=== PATIENT | male | born 1975 | race Caucasian/White ===

== ENCOUNTER 2017-10-18 10:37 | Emergency (ER) | payer SELFPAY ==
[2017-10-18 10:55] VITALS: BMI 26.6
--- NOTE | 2017-10-18 11:08 | PDOC ---
History of Present Illness - General History Source: Patient Exam Limitations: No Limitations - History of Present Illness Initial Comments: 10/18/17 12:01 The patient is a 42 year old male with a significant PMH of HTN who presents to the emergency department with headache, neck pain, vision disturbance, leg swelling, and nocturia for the past few weeks that worsened over the last 4 days. The patient complains of swelling over the eyes every morning. The patient states he has not been taking his HTN meds for the past 6 months due to financial reasons. He states he went to a doctor yesterday who prescribed him amlodipine and enalapril. The patient describes the headache as an 8/10. He notes he has had headaches in the past but not as severe as the most recent headaches. The patient also notes that he has been urinating up to 4-6 times at night. The patient denies chest pain, shortness of breath, and dizziness. Denies fever, chills, nausea, vomit, diarrhea and constipation. Denies urgency and hematuria. Allergies: NKA Past surgical history: None reported Social history: No reported alcohol, drug, or cigarette use. <Rosario Reed - Last Filed: 10/18/17 13:44> <Joshua Trinidad - Last Filed: 10/18/17 14:24> - General Chief Complaint: Head/Neck problem Stated Complaint: PAIN Time Seen by Provider: 10/18/17 11:03 Past History <Rosario Reed - Last Filed: 10/18/17 13:44> - Past Medical History COPD: No Other medical history: DENIES. - Surgical History Abdominal Surgery: Yes - Suicide/Smoking/Psychosocial Hx Smoking History: Never smoked Have you smoked in the past 12 months: No <Joshua Trinidad - Last Filed: 10/18/17 14:24> - Past Medical History Allergies/Adverse Reactions: Allergies Allergy/AdvReac Type Severity Reaction Status Date / Time No Known Allergies Allergy Verified 10/18/17 10:45 Home Medications: Ambulatory Orders Amlodipine Besylate 10 mg PO DAILY 10/18/17 Enalapril Maleate [Vasotec] 20 mg PO DAILY 10/18/17 Review of Systems - Review of Systems Constitutional: No: Chills, Fever HEENTM: Yes: Recent change in vision. No: Double Vision Respiratory: No: Cough, Shortness of Breath Cardiac (ROS): No: Chest Pain, Lightheadedness, Syncope ABD/GI: No: Nausea, Vomiting Musculoskeletal: Yes: Muscle Pain Neurological: Yes: Headache. No: Tingling, Weakness All Other Systems: Reviewed and Negative <Joshua Trinidad - Last Filed: 10/18/17 14:24> *Physical Exam - Vital Signs Last Vital Signs Temp Pulse Resp BP Pulse Ox 97.3 F L 80 18 178/115 98 10/18/17 10:46 10/18/17 11:47 10/18/17 11:47 10/18/17 11:47 10/18/17 11:47 - Physical Exam Comments: 10/18/17 12:04 GENERAL: The patient is awake, alert, and fully oriented, in no acute distress. HEAD: Normal with no signs of trauma. EYES: Pupils equal, round and reactive to light, extraocular movements intact, sclera anicteric, conjunctiva clear with no pallor. ENT: Ears normal, nares patent, oropharynx clear without exudates. Moist mucous membranes. NECK: (+) No audible carotid bruits. Normal range of motion, supple without lymphadenopathy, JVD, or masses. LUNGS: Breath sounds equal, clear to auscultation bilaterally. No wheeze/ crackles. HEART: (+) S3 noted. Regular rate and rhythm, normal S1 and S2 without murmur or rub. ABDOMEN: Soft/nontender/nondistended. BS wnl. No guarding or rebound. No palpable masses. No hepatosplenomegaly. EXTREMITIES: (+) Trace to 1+ pretibial edema bilaterally. Normal range of motion. No clubbing or cyanosis. No cords, erythema, or tenderness. NEUROLOGICAL: Cranial nerves II through XII grossly intact. Normal speech, normal gait. PSYCH: Normal mood, normal affect. SKIN: Warm, Dry, normal turgor, no rashes or lesions noted. <Rosario Reed - Last Filed: 10/18/17 13:44> - Vital Signs Last Vital Signs Temp Pulse Resp BP Pulse Ox 97.3 F L 75 19 194/126 99 10/18/17 10:46 10/18/17 10:46 10/18/17 10:46 10/18/17 10:46 10/18/17 10:46 <Joshua Trinidad - Last Filed: 10/18/17 14:24> Heart Score/ECG Review #1 ECG reviewed & interpreted by me at: 11:45 General ECG Interpretation: Sinus Rhythm, Normal Rate (71), Normal Intervals ( qtc 402), No acute ischemic changes <Joshua Trinidad - Last Filed: 10/18/17 14:24> ED Treatment Course - LABORATORY CBC & Chemistry Diagram: 10/18/17 11:14 10/18/17 11:14 - ADDITIONAL ORDERS Additional order review: Laboratory Results 10/18/17 11:14 PT with INR 10.50 INR 0.93 10/18/17 11:14 RBC 5.28 MCV 89.7 MCHC 33.2 RDW 14.1 MPV 7.8 Neutrophils % 59.2 Lymphocytes % 27.0 Monocytes % 6.9 Eosinophils % 5.8 H Basophils % 1.1 <Rosario Reed - Last Filed: 10/18/17 13:44> - LABORATORY CBC & Chemistry Diagram: 10/18/17 11:14 10/18/17 11:14 - RADIOLOGY Radiology Studies Ordered: Category Date Time Status CHEST PA & LAT [RAD] Stat Radiology 10/18/17 11:05 Ordered <Joshua Trinidad - Last Filed: 10/18/17 14:24> Medical Decision Making - Medical Decision Making Exam: Head CT w/o contrast Who interpreted: Dr. Dong Reviewed by: Dr. Trinidad Impression: No evidence of a focal intracranial lesion or hemorrhage seen. 6 mm sclerotic density in left side of the clivus which is nonspecific. Exam: Chest XR Who interpreted: Dr. Lopez Reviewed by: Dr. Trinidad Impression: No acute pathology. Old healed clavicular trauma. Nodular density left base. 10/18/17 13:44 Exam: Carotid doppler Who interpreted: Dr. Fox Reviewed by: Dr. Trinidad Impression: Mild intimal thickening at the common carotid bifurcation/bulb, bilaterally without evidence of hemodynamically significant stenosis. <Rosario Reed - Last Filed: 10/18/17 13:44> - Medical Decision Making 10/18/17 11:54 A portion of this note was documented by scribe services under my direction. I have reviewed the details of the note, within reason, and agree with the documentation with the following case summary and management plan written by me. 42-year-old male with history of hypertension noncompliant with medications for 6 months now presents with headache, vision disturbance, nocturia, and leg swelling over the last few weeks, worse over the last 2 days. Patient stopped medications for financial reasons, over the last few days has had headache and neck discomfort so he went to a clinic and had amlodipine and enalapril represcribed, started them yesterday. Presents today for persistent symptoms. Vital signs as noted with elevated blood pressure Patient is well-appearing seated on stretcher with eyes open and speaking full sentences Pupils are equal round and reactive, no audible carotid bruit S3 noted, cardiopulmonary exam is otherwise normal One plus edema bilaterally 42-year-old male with elevated blood pressures secondary to noncompliance with medication, some concern for end organ injury given the right-sided visual disturbance and headache/neck pain, new edema. No evidence for pulmonary edema. Labs, EKG Chest x-ray, CT head Blood pressure control Reassess 10/18/17 13:38 CBC within normal limits, chemistry notable for creatinine of 1.5, CT head without acute pathology other than small sclerotic density in the left clivus, chest x-ray without acute pathology. Given the renal insufficiency, not a candidate for CTA imaging, carotid Dopplers ordered. BP slightly improved at 178/115. 10/18/17 14:19 Doppler without significant stenosis or abnormality. Looks and feels well. neuro intact, edema improved with leg elevation during the ED stay. Given he is now connected with a clinic, on medications with improved BP control , and without findings suggestive of acute end organ injury (now states vision disturbance intermittent for months and not currently active), can discharge and continue prompt outpt f/u. Offered [facility] clinic f/u as well. Understands strict return criteria. <Joshua Trinidad - Last Filed: 10/18/17 14:24> *DC/Admit/Observation/Transfer - Attestations Scribe Attestion: 10/18/17 12:05 Documentation prepared by Rosario Reed, acting as medical insurance verifier for Joshua Trinidad MD. <Rosario Reed - Last Filed: 10/18/17 13:44> <MiliziaJoshua - Last Filed: 10/18/17 14:24> Diagnosis at time of Disposition: Hypertensive urgency - Discharge Dispostion Disposition: HOME Condition at time of disposition: Improved - Referrals Referrals: Chano Malloy MD [Staff Physician] - - Patient Instructions Printed Discharge Instructions: DI for Malignant Hypertension Additional Instructions: Activity as tolerated. Stay hydrated. Tylenol 1000 mg every 8 hours and/or ibuprofen 600 mg every 8 hours as needed for pain. Blood tests showed a Creatinine of 1.5, which is slightly elevated/abnormal for kidney function. The rest of the blood tests, chest xray, ct head, and neck ultrasound showed no abnormalities. Continue your medications as previously prescribed by your physician. Take them as prescribed every day! You should follow up with Dr. Macias or the [facility] (call for Dr. Malloy) as soon as possible regarding today's emergency department visit. Return to the emergency department for any new or concerning symptoms, particularly persistent or worsening headache, vision changes or vomiting, focal weakness, chest pain or difficulty breathing, decreased urination or severe swelling.
[2017-10-18 11:32] LABS: BASOPHIL 1.1 % (0-2.0); EOSINOPHIL 5.8 % (0-4.5); MCH 29.8 pg (25.7-33.7); MCHC 33.2 g/dl (32.0-35.9); MEAN CELL VOLUME 89.7 fl (80-96); MEAN PLT VOLUME 7.8 fl (7.5-11.1); NEUTROPHILS 59.2 % (42.8-82.8); PLATELET COUNT 351 K/MM3 (134-434); RDW 14.1 % (11.9-15.9); WHITE BLOOD COUNT 9.6 K/mm3 (4.0-10.0)
[2017-10-18 11:45] LABS: INR 0.93 (0.82-1.09); PROTHROMBIN TIME (PATIENT) 10.5 SEC (9.98-11.88)
[2017-10-18 11:57] LABS: ALBUMIN 1.9 g/dl (3.4-5.0); ANION GAP 6 (8-16); BILIRUBIN,TOTAL 0.3 mg/dL (0.2-1.0); CALCIUM 8.3 mg/dL (8.5-10.1); CO2 25 mmol/L (21-32); CPK 108 IU/L (39-308); CREATININE 1.5 mg/dL (0.7-1.3); GLUCOSE,RANDOM 111 mg/dL (74-106); MAGNESIUM 1.9 mg/dL (1.8-2.4); SGOT/AST 21 U/L (15-37); SGPT/ALT 31 U/L (12-78); TOT PROT 5.1 g/dl (6.4-8.2)
[2017-10-18 12:00] LABS: ALK PHOS 91 U/L (45-117); TROPONIN I < 0.02 ng/ml (0.00-0.05)
--- NOTE | 2017-10-18 14:33 | EKG ---
Test Reason : Blood Pressure : / mmHG Vent. Rate : 071 BPM Atrial Rate : 071 BPM P-R Int : 142 ms QRS Dur : 098 ms QT Int : 370 ms P-R-T Axes : 067 029 039 degrees QTc Int : 402 ms NORMAL SINUS RHYTHM POSSIBLE LEFT ATRIAL ENLARGEMENT BORDERLINE ECG NO PREVIOUS ECGS AVAILABLE Confirmed by CHARLIE CHAVIS MD ([id number]) on 10/18/2017 2:32:35 PM Referred By: Confirmed By:CHARLIE CHAVIS MD
[2017-10-18 14:52] VITALS: BP 170/99; PULSE 75; TEMP 98.3
== END 2017-10-18 14:52 | disposition home or self-care (01) ==
LOC: JER 10:37
DX: I16.0 Hypertensive urgency (principal)
CPT/HCPCS: 36415; 70450-TC; 71020-TC; 80053; 82550; 83735; 84484; 85025; 85610; 93005; 93010; 93880-TC; 99285-25